=== PATIENT | female | born 1990 | race Caucasian/White ===

== ENCOUNTER 2019-05-18 19:58 | Emergency (ER) | payer OTHER ==
[~2019-05-18] VITALS: Ht 172.7 cm; Wt 65.8 kg
[2019-05-18] MEDS ORDERED: ZOLOFT25 MG (20:11)
== END 2019-05-18 23:42 | disposition home or self-care (01) ==
LOC: ER 19:58
DX: B37.3 Candidiasis of vulva and vagina (principal)

== ENCOUNTER 2021-04-16 05:50 | Day surgery (SDC) | payer OTHER ==
[~2021-04-16 05:50] MED LIST: AMANTADINE100 M1 PO; BUSPIRONE HCL15 MG PO; ESTARYLLA1 EACH PO; ZOLOFT25 MG
== END 2021-04-16 15:20 | disposition home or self-care (01) ==
LOC: CIR.AMB 05:50
PROVIDERS: ATTEND Obstetrics & Gynecology
DX: N72 Inflammatory disease of cervix uteri (principal); Z20.822 Contact with and (suspected) exposure to COVID-19

== ENCOUNTER 2022-08-14 13:22 | Outpatient (CLI) | payer OTHER | END 2022-08-14 14:34 | disposition home or self-care (01) | LOC: PRENATAL 13:22 | PROVIDERS: ATTEND Obstetrics & Gynecology Maternal & Fetal Medicine | DX: O35.9XX0 Maternal care for (suspected) fetal abnormality and damage, unspecified, not applicable or unspecified (principal); O35.3XX0 Maternal care for (suspected) damage to fetus from viral disease in mother, not applicable or unspecified; Z3A.20 20 weeks gestation of pregnancy ==

== ENCOUNTER 2022-09-13 17:45 | Outpatient (CLI) | payer OTHER | END 2022-09-13 17:49 | disposition home or self-care (01) | LOC: NST 17:45 | PROVIDERS: ATTEND Student in an Organized Health Care Education/Training Program | DX: Z34.82 Encounter for supervision of other normal pregnancy, second trimester (principal) ==

== ENCOUNTER 2022-11-05 14:18 | Outpatient (CLI) | payer OTHER | END 2022-11-05 16:36 | disposition home or self-care (01) | LOC: PRENATAL 14:18 | PROVIDERS: ATTEND Obstetrics & Gynecology Maternal & Fetal Medicine | DX: O26.849 Uterine size-date discrepancy, unspecified trimester (principal); O36.8199 Decreased fetal movements, unspecified trimester, other fetus; Z3A.32 32 weeks gestation of pregnancy ==

== ENCOUNTER 2022-12-16 22:06 | Outpatient (CLI) | payer OTHER ==
[2022-12-16] MEDS ORDERED: PRENATAL TABLE1 EAC4 PO (22:12)
== END 2022-12-17 12:21 | disposition home or self-care (01) ==
LOC: OBS/DEL 22:06
PROVIDERS: ATTEND Obstetrics & Gynecology
DX: O26.893 Other specified pregnancy related conditions, third trimester (principal); Z3A.38 38 weeks gestation of pregnancy; Z91.018 Allergy to other foods; Z91.048 Other nonmedicinal substance allergy status

== ENCOUNTER 2022-12-18 03:34 | Inpatient (IN) | payer OTHER ==
[~2022-12-18] VITALS: Ht 172.7 cm; Wt 83.9 kg
[~2022-12-18 03:34] MED LIST changes: +PRENATAL TABLE1 EAC4 PO
== END 2022-12-21 13:12 | disposition home or self-care (01) | DRG 788 ==
LOC: LDR 03:34 → OB/GYN 12-19 00:23
PROVIDERS: ADMIT Obstetrics & Gynecology; ATTEND Obstetrics & Gynecology
PROC: 4A1HXCZ Monitoring of Products of Conception, Cardiac Rate, External Approach (ICD-10-PCS; 2022-12-18)
PROC: 10D00Z1 Extraction of Products of Conception, Low, Open Approach (ICD-10-PCS; principal; 2022-12-18 21:00)
DX: O62.0 Primary inadequate contractions (principal); O62.1 Secondary uterine inertia; Z3A.38 38 weeks gestation of pregnancy; Z37.0 Single live birth; Z20.822 Contact with and (suspected) exposure to COVID-19